=== PATIENT | female | born 1990 | race Caucasian/White ===

== ENCOUNTER 2018-02-22 18:12 | Inpatient (IN) ==
[2018-02-22 18:45] LABS: Bilirubin,Urine Small (Negative); Blood,Urine Negative (Negative); Clarity,Urine Cloudy (Clear); Color,Urine Yellow (Yellow); Glucose,Urine (UA) Normal (Normal); Ketones,Urine Trace mg/dL (Negative); Leukocyte Esterase,Urine Small (Negative); Nitrite,Urine Positive (Negative); Protein,Urine 30 mg/dL (Neg-Trace); Urobilinogen,Urine Normal (Normal)
[2018-02-22 18:47] LABS: Bacteria,Urine Many per hpf (None-Few); Hyaline Casts,Urine None Seen per lpf (None-Few); RBC,Urine 0-3 per hpf (0-3)
[2018-02-22 18:57] LABS: Amphetamine Screen,Urine Positive ng/mL (Cutoff=1000); Barbiturate Screen,Urine Negative ng/mL (Cutoff=200); Benzodiazepines Screen,Urine Negative ng/mL (Cutoff=200); Cannabinoid Screen,Urine Negative ng/mL (Cutoff = 50); Cocaine Screen,Urine Negative ng/mL (Cutoff= 300); Opiate Screen,Urine Negative ng/mL (Cutoff=300); Phencyclidine Screen,Urine Negative ng/mL (Cutoff=25)
[2018-02-22 18:59] LABS: Squamous Epithelial Cell,Urine Few per lpf (None-Few)
--- NOTE | 2018-02-22 19:15 | Emergency Department Note ---
Disposition Clinical Impression: Depression, Suicidal ideation Disposition: Still a Patient Condition: Fair Referrals: NONE,PCP [Primary Care Provider] - Forms: ED Satisfaction Letter Psych HPI - General Chief Complaint: ED Psychiatric Symptoms Stated Complaint: SI Time Seen by Provider: 02/22/18 18:18 Source: patient - History of Present Illness HPI Narrative: 27 YO F here for suicidal ideation with plan with a history of PTSD and depression. Patient states for the past few days she has been having suicidal idation with plan. She is a recreational drug user who uses IV meth, oral percocet and suboxone. She was planning on injecting and taking all the drugs available to OD. Decided to come in to get help today. She lives with her who is also an IV drug user. Patient has children but they live with [id number]. No weapons in her home. Patient was admitted 2 years ago at [facility] in [place] for suicidal ideation with plan for a week. She states she has been struggling with depression and suicidal ideation off and on since she was 15. Took IV meth and PO percocet yesterday. - Related Data Previous Rx's Medication Instructions Recorded Ketorolac [Toradol] 10 mg PO Q6HR #12 tablet 08/15/16 Cephalexin [Keflex] 500 mg PO QID #14 capsule 06/24/17 Allergies Allergy/AdvReac Type Severity Reaction Status Date / Time No Known Allergies Allergy Verified 02/22/18 18:40 All systems ED: reviewed and negative except as stated. 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 Vital Signs Temperature 98.2 F 02/22/18 18:17 Pulse Rate 115 02/22/18 18:17 Respiratory Rate 16 02/22/18 18:17 Blood Pressure 144/110 02/22/18 18:17 O2 Sat by Pulse Oximetry 99 02/22/18 18:17 Temperature 98.2 F 02/22/18 18:42 Pulse Rate 115 02/22/18 18:42 Respiratory Rate 16 02/22/18 18:42 Blood Pressure 144/110 02/22/18 18:42 O2 Sat by Pulse Oximetry 99 02/22/18 18:42 Oxygen Delivery Oxygen Delivery Room Air Psych - Lab Data Result diagrams: 02/22/18 19:36 02/22/18 19:36 Lab Results 02/22/18 02/22/18 02/22/18 Range/Units 18:34 18:34 19:36 WBC 7.1 (4.3-11.1) K/mcL RBC 4.94 (3.82-4.97) M/mcL Hgb 13.9 (11.5-15.4) g/dL Hct 40.7 (35.3-44.9) % MCV 82.4 L (83.0-100.0) fL MCH 28.1 (28.0-33.3) pg MCHC 34.2 (31.6-35.5) g/dL RDW 11.9 (11.5-14.5) % Plt Count 270 (140-400) K/mcL MPV 9.4 (9.4-12.4) fL Immature Gran % 0.3 (0-4) % Seg Neutrophils % 63.5 % Lymphocytes % 26.5 % Monocytes % 7.5 % Eosinophils % 1.6 % Basophils % 0.6 % Neutrophils # 4.5 (1.6-8.9) K/mcL Lymphocytes # 1.9 (0.6-4.6) K/mcL Monocytes # 0.5 (0.0-1.3) K/mcL Eosinophils # 0.1 (0.0-0.6) K/mcL Basophils # 0.0 (0.0-0.2) K/mcL Sodium (136-145) mEq/L Potassium (3.5-5.1) mEq/L Chloride (98-107) mEq/L Carbon Dioxide (23-29) mEq/L BUN (6-20) mg/dL Creatinine (0.60-1.20) mg/dL Est GFR ( Amer) (> 60) Est GFR (Non-Af Amer) (> 60) BUN/Creatinine Ratio (6-26) Glucose (70-105) mg/dL Calculated Osmolality (280-300) Calcium (8.6-10.3) mg/dL Total Bilirubin (0.3-1.0) mg/dL Direct Bilirubin (0.0-0.2) mg/dL Indirect Bilirubin (0.0-1.2) mg/dL AST (13-39) Units/L ALT (7-52) Units/L Alkaline Phosphatase (34-104) Units/L Serum Total Protein (6.4-8.9) g/dL Albumin (3.5-5.7) g/dL Globulin (2.4-3.5) g/dL Albumin/Globulin Ratio (1.1-2.2) TSH (0.340-5.600) mcIU/mL Urine Color Yellow (Yellow) Urine Clarity Cloudy A (Clear) Urine pH 6.0 (5.0-8.0) pH Units Ur Specific Stewart 1.030 H (1.010-1.025) Urine Protein 30 H (Neg-Trace) mg/dL Urine Glucose (UA) Normal (Normal) mg/dL Urine Ketones Trace H (Negative) mg/dL Urine Blood Negative (Negative) Urine Nitrite Positive A (Negative) Urine Bilirubin Small H (Negative) Urine Urobilinogen Normal (Normal) mg/dL Ur Leukocyte Esterase Small H (Negative) Urine Microscopic RBC 0-3 (0-3) per hpf Urine Microscopic WBC 5-15 H (0-3) per hpf Ur Squamous Epith Cells Few (None-Few) per lpf Urine Bacteria Many H (None-Few) per hpf Hyaline Casts None Seen (None-Few) per lpf Salicylates (15.0-30.0) mg/dL Urine Opiates Screen Negative (Lllcjv=500) ng/mL Acetaminophen (10-20) mcg/mL Ur Barbiturates Screen Negative (Fafzwd=189) ng/mL Ur Phencyclidine Scrn Negative (Cutoff=25) ng/mL Ur Amphetamines Screen Positive H (Vuceei=8879) ng/mL U Benzodiazepines Scrn Negative (Mlngwb=159) ng/mL Urine Cocaine Screen Negative (Cutoff= 300) ng/mL U Marijuana (THC) Screen Negative (Cutoff = 50) ng/mL Ur Drug Screen Interp See Below Ethyl Alcohol (Less than 10) mg/dL 02/22/18 Range/Units 19:36 WBC (4.3-11.1) K/mcL RBC (3.82-4.97) M/mcL Hgb (11.5-15.4) g/dL Hct (35.3-44.9) % MCV (83.0-100.0) fL MCH (28.0-33.3) pg MCHC (31.6-35.5) g/dL RDW (11.5-14.5) % Plt Count (140-400) K/mcL MPV (9.4-12.4) fL Immature Gran % (0-4) % Seg Neutrophils % % Lymphocytes % % Monocytes % % Eosinophils % % Basophils % % Neutrophils # (1.6-8.9) K/mcL Lymphocytes # (0.6-4.6) K/mcL Monocytes # (0.0-1.3) K/mcL Eosinophils # (0.0-0.6) K/mcL Basophils # (0.0-0.2) K/mcL Sodium 136 (136-145) mEq/L Potassium 3.2 L (3.5-5.1) mEq/L Chloride 102 (98-107) mEq/L Carbon Dioxide 23 (23-29) mEq/L BUN 20 (6-20) mg/dL Creatinine 1.00 (0.60-1.20) mg/dL Est GFR ( Amer) > 60 (> 60) Est GFR (Non-Af Amer) > 60 (> 60) BUN/Creatinine Ratio 20 (6-26) Glucose 146 H (70-105) mg/dL Calculated Osmolality 287 (280-300) Calcium 9.8 (8.6-10.3) mg/dL Total Bilirubin 0.7 (0.3-1.0) mg/dL Direct Bilirubin 0.2 (0.0-0.2) mg/dL Indirect Bilirubin 0.5 (0.0-1.2) mg/dL AST 30 (13-39) Units/L ALT 33 (7-52) Units/L Alkaline Phosphatase 54 (34-104) Units/L Serum Total Protein 7.3 (6.4-8.9) g/dL Albumin 4.5 (3.5-5.7) g/dL Globulin 2.8 (2.4-3.5) g/dL Albumin/Globulin Ratio 1.6 (1.1-2.2) TSH 0.515 (0.340-5.600) mcIU/mL Urine Color (Yellow) Urine Clarity (Clear) Urine pH (5.0-8.0) pH Units Ur Specific Stewart (1.010-1.025) Urine Protein (Neg-Trace) mg/dL Urine Glucose (UA) (Normal) mg/dL Urine Ketones (Negative) mg/dL Urine Blood (Negative) Urine Nitrite (Negative) Urine Bilirubin (Negative) Urine Urobilinogen (Normal) mg/dL Ur Leukocyte Esterase (Negative) Urine Microscopic RBC (0-3) per hpf Urine Microscopic WBC (0-3) per hpf Ur Squamous Epith Cells (None-Few) per lpf Urine Bacteria (None-Few) per hpf Hyaline Casts (None-Few) per lpf Salicylates < 2.5 L (15.0-30.0) mg/dL Urine Opiates Screen (Tmdycz=556) ng/mL Acetaminophen < 10 L (10-20) mcg/mL Ur Barbiturates Screen (Hxmhgu=353) ng/mL Ur Phencyclidine Scrn (Cutoff=25) ng/mL Ur Amphetamines Screen (Ggzfby=4419) ng/mL U Benzodiazepines Scrn (Yrpuqr=379) ng/mL Urine Cocaine Screen (Cutoff= 300) ng/mL U Marijuana (THC) Screen (Cutoff = 50) ng/mL Ur Drug Screen Interp Ethyl Alcohol 11 H (Less than 10) mg/dL Psychiatric Medical Clearance - Medical Clearance Checklist Medical History: No Social History Section defined Current Vitals: Last Vital Signs Temp 98.2 F 02/22/18 18:42 Pulse 115 02/22/18 18:42 Resp 16 02/22/18 18:42 BP 144/110 02/22/18 18:42 Pulse Ox 99 02/22/18 18:42 Psychiatric Lab Panel: Drug Levels and Toxicity 02/22/18 02/22/18 18:34 19:36 Urine Opiates Screen Negative Acetaminophen < 10 L Ur Barbiturates Screen Negative Ur Phencyclidine Scrn Negative Ur Amphetamines Screen Positive H U Benzodiazepines Scrn Negative Urine Cocaine Screen Negative U Marijuana (THC) Screen Negative Ethyl Alcohol 11 H Abnormal Labs: Abnormal lab results MCV 82.4 fL (83.0-100.0) L 02/22/18 19:36 Potassium 3.2 mEq/L (3.5-5.1) L 02/22/18 19:36 Glucose 146 mg/dL (70-105) H 02/22/18 19:36 Urine Clarity Cloudy (Clear) A 02/22/18 18:34 Ur Specific Stewart 1.030 (1.010-1.025) H 02/22/18 18:34 Urine Protein 30 mg/dL (Neg-Trace) H 02/22/18 18:34 Urine Ketones Trace mg/dL (Negative) H 02/22/18 18:34 Urine Nitrite Positive (Negative) A 02/22/18 18:34 Urine Bilirubin Small (Negative) H 02/22/18 18:34 Ur Leukocyte Esterase Small (Negative) H 02/22/18 18:34 Urine Microscopic WBC 5-15 per hpf (0-3) H 02/22/18 18:34 Urine Bacteria Many per hpf (None-Few) H 02/22/18 18:34 Salicylates < 2.5 mg/dL (15.0-30.0) L 02/22/18 19:36 Acetaminophen < 10 mcg/mL (10-20) L 02/22/18 19:36 Ur Amphetamines Screen Positive ng/mL (Spxlyv=9056) H 02/22/18 18:34 Ethyl Alcohol 11 mg/dL (Less than 10) H 02/22/18 19:36 Statement of Medical Clearance: I have evaluated the patient, reviewed diagnostic information, and certify that the patient's medical condition is sufficiently stable that transfer to the psychiatric unit does not pose a significant risk of deterioration. Attestation Statement - Attestation Attestation: I examined this patient and my medical decision-making was reviewed with the Resident Physician. I agree with the documented findings, disposition and treatment plan as described except to the extent set forth below. Suicidal ideations related underlying drug abuse. Will obtain basic laboratory analyses and then proceed with psychiatric evaluation for possible placement.
[2018-02-22 20:00] LABS: Basophils % 0.6 %; Eosinophils # 0.1 K/mcL (0.0-0.6); Eosinophils % 1.6 %; Hematocrit 40.7 % (35.3-44.9); Hemoglobin 13.9 g/dL (11.5-15.4); Immature Granulocytes % 0.3 % (0-4); Lymphocytes # 1.9 K/mcL (0.6-4.6); Lymphocytes % 26.5 %; Mean Corpuscular HGB Conc 34.2 g/dL (31.6-35.5); Mean Corpuscular Hemoglobin 28.1 pg (28.0-33.3); Mean Corpuscular Volume 82.4 fL (83.0-100.0); Mean Platelet Volume 9.4 fL (9.4-12.4); Monocytes # 0.5 K/mcL (0.0-1.3); Monocytes % 7.5 %; Neutrophils # 4.5 K/mcL (1.6-8.9); Platelet Count 270 K/mcL (140-400); Red Blood Count 4.94 M/mcL (3.82-4.97); Red Cell Distribution Width 11.9 % (11.5-14.5); Segmented Neutrophils % 63.5 %
[2018-02-22] MEDS ORDERED: clonazePAM 0.5 MG TABLET PO ONE (20:03)
[2018-02-22 20:32] LABS: Acetaminophen < 10 mcg/mL (10-20); Alanine Aminotransferase 33 Units/L (7-52); Albumin 4.5 g/dL (3.5-5.7); Albumin/Globulin Ratio 1.6 (1.1-2.2); Alkaline Phosphatase 54 Units/L (34-104); Aspartate Amino Transferase 30 Units/L (13-39); BUN/Creatinine Ratio 20 (6-26); Bilirubin,Direct 0.2 mg/dL (0.0-0.2); Bilirubin,Indirect 0.5 mg/dL (0.0-1.2); Bilirubin,Total 0.7 mg/dL (0.3-1.0); Blood Urea Nitrogen 20 mg/dL (6-20); Calcium 9.8 mg/dL (8.6-10.3); Carbon Dioxide 23 mEq/L (23-29); Chloride 102 mEq/L (98-107); Ethanol 11 mg/dL (Less than 10); Globulin 2.8 g/dL (2.4-3.5); Glucose 146 mg/dL (70-105); Osmolality,Calculated 287 (280-300); Potassium 3.2 mEq/L (3.5-5.1); Salicylate < 2.5 mg/dL (15.0-30.0); Sodium 136 mEq/L (136-145); Total Protein 7.3 g/dL (6.4-8.9); eGFR For Non-African Americans > 60 (> 60)
[2018-02-22 20:40] LABS: Thyroid Stimulating Hormone 0.515 mcIU/mL (0.340-5.600)
[2018-02-22] MEDS ORDERED: cephALEXin 250 MG CAPSULE PO ONE (22:45)
[2018-02-22] MEDS ORDERED: *HR* LORazepam 1 MG TABLET PO PRN (23:10)
[2018-02-22] MEDS ORDERED: MOM Conc 10 ML UD.LIQ PO PRN (23:10)
[2018-02-22] MEDS ORDERED: Acetaminophen 325 MG TABLET PO PRN (23:10)
[2018-02-22] MEDS ORDERED: Haloperidol Lactate 5 MG/ML VIAL IM PRN (23:10)
[2018-02-22] MEDS ORDERED: Mag Hydrox/Al Hydrox/Simeth 30 ML UDC PO PRN (23:10)
[2018-02-22] MEDS ORDERED: *HR* LORazepam 2 MG/ML VIAL IM PRN (23:10)
[2018-02-23] MEDS: traZODone 50 MG TABLET PO PRN ×2 (00:11→20:33)
[2018-02-23] MEDS: hydrOXYzine pamoate 25 MG CAPSULE PO PRN ×3 (00:11→20:33)
[2018-02-23] MEDS: Nicotine 21 MG PATCH.TD24 TD SCH (08:49)
--- NOTE | 2018-02-23 10:01 | Psychiatry History & Physical ---
Date of Encounter: 02/23/18 Time of Encounter: 09:56 History of Present Illness Patient Stated Chief Complaint: Suicidal ideation Medicare Admission Attestation: For traditional Medicare patients the provided hospital inpatient services are reasonable and necessary and in the case of services not specified as inpatient -only under 42 CFR 419.22 (n), that they are appropriately provided as inpatient services in accordance 42 CFR 412.3. For Critical Access Hospital the patient may reasonably be expected to be discharged or transferred to a hospital within 96 hours after admission to the Critical Access Hospital. Admitted From: Emergency Dept History of Present Illness: Ms. Iyer is a 27 year old female admitted from the emergency department for suicidal ideation. Patient lost custody of her children last week due to substance abuse also she was having marital difficulties and fighting with her , they both abuse drugs like methamphetamine and opiates. Patient wanted to get help for her drug abuse. She never had any treatment for substance abuse or psychiatric treatment. Her 3 children are living with mother -in-law. Patient complained of an anxiety irritability, depression, hopelessness and suicidal ideation. UDS was positive for opiates and amphetamine. Patient admits to using IVDA. She is hep C positive. She did not follow-up on hep C because she has no primary care physician. She has high school education and no work history. Drugs she used include methamphetamine, Suboxone and other opiates. Past Med Surg Social Fam HX - Past Medical History Medical history: hepatitis - Past Psychiatric History Psychiatric history: Reports: anxiety, depression, PTSD, previous psychiatric hospitalization Past psychiatric history details: [facility] December 2016. Family psychiatric history: Unknown - Past Surgical History Surgical History: appendectomy - Social History Smoking Status: Current every day smoker Smokeless Tobacco Status: No Alcohol use: none Drug use: opiates, methamphetamine, IV Drug Use, prescription drug abuse Medications & Allergies Ketorolac [Toradol] 10 mg PO Q6HR #12 tablet 08/15/16 [Rx] Cephalexin [Keflex] 500 mg PO QID #14 capsule 06/24/17 [Rx] Cephalexin [Keflex] 500 mg PO BID 7 Days #14 capsule 02/22/18 [Rx] 3 Allergy/AdvReac Type Severity Reaction Status Date / Time No Known Allergies Allergy Verified 02/22/18 18:40 Review of Systems Psychiatric: Reports: anxiety, abnormal sleep pattern, suicidal ideation, hopelessness, irritability, mood swings Exam - HEENT Head exam IM: Present: atraumatic Eye exam IM: Present: EOMI, normal appearance, PERRL ENT exam IM: Present: normal exam - Neurological Neurological exam: Present: CN II-XII intact - Respiratory Respiratory exam IM: Present: CTAB - GI/Abdominal GI/Abdominal exam IM: Present: normal bowel sounds, soft. Absent: tenderness - Extremities Extremities exam IM: Present: full ROM - Skin Skin exam IM: Present: dry, warm - Constitutional Vitals: Temp Pulse Resp BP Pulse Ox 97.8 F 88 14 124/80 99 02/23/18 08:59 02/23/18 08:59 02/23/18 08:59 02/23/18 08:59 02/22/18 18:42 General appearance: unkempt, disheveled, malnourished, thin - Musculoskeletal Gait: normal Station: relaxed Strength & Tone: normal for patient - Psychiatric Patient Orientation: Yes Person, Yes Time, Yes Place Level of alertness: Alert Behavior: cooperative, anxious, restless, guarded Psychomotor activity: Normal Eye Contact: Fleeting Contact Mood Description: Anxious, Labile, Irritable Affect description: congruent with mood, labile, dysphoric Speech Volume: Normal, Whispering Speech pattern: normal rate, normal rhythm, fluent, spontaneous, limited Language & Vocabulary: consistent with education Thought Process: Linear, Goal Oriented Thought Content: Yes Suicidal ideation, No Homicidal ideation, No Overt delusions Perceptual Disturbances: No Auditory hallucinations, No Visual hallucinations Attention Span Ability: Capable of Focused Attention Memory Description: Grossly Intact Patient Reliability: Questionable Historian Fund of knowledge: Yes abstraction ability, Yes average, Yes aware of current events Intelligence Estimate: Average Judgment: Limited Insight: Partial Results - Labs Labs: Laboratory Last Values WBC 7.1 K/mcL (4.3-11.1) 02/22/18 19:36 RBC 4.94 M/mcL (3.82-4.97) 02/22/18 19:36 Hgb 13.9 g/dL (11.5-15.4) 02/22/18 19:36 Hct 40.7 % (35.3-44.9) 02/22/18 19:36 MCV 82.4 fL (83.0-100.0) L 02/22/18 19:36 MCH 28.1 pg (28.0-33.3) 02/22/18 19:36 MCHC 34.2 g/dL (31.6-35.5) 02/22/18 19:36 RDW 11.9 % (11.5-14.5) 02/22/18 19:36 Plt Count 270 K/mcL (140-400) 02/22/18 19:36 MPV 9.4 fL (9.4-12.4) 02/22/18 19:36 Immature Gran % 0.3 % (0-4) 02/22/18 19:36 Seg Neutrophils % 63.5 % 02/22/18 19:36 Lymphocytes % 26.5 % 02/22/18 19:36 Monocytes % 7.5 % 02/22/18 19:36 Eosinophils % 1.6 % 02/22/18 19:36 Basophils % 0.6 % 02/22/18 19:36 Neutrophils # 4.5 K/mcL (1.6-8.9) 02/22/18 19:36 Lymphocytes # 1.9 K/mcL (0.6-4.6) 02/22/18 19:36 Monocytes # 0.5 K/mcL (0.0-1.3) 02/22/18 19:36 Eosinophils # 0.1 K/mcL (0.0-0.6) 02/22/18 19:36 Basophils # 0.0 K/mcL (0.0-0.2) 02/22/18 19:36 Sodium 136 mEq/L (136-145) 02/22/18 19:36 Potassium 3.2 mEq/L (3.5-5.1) L 02/22/18 19:36 Chloride 102 mEq/L (98-107) 02/22/18 19:36 Carbon Dioxide 23 mEq/L (23-29) 02/22/18 19:36 BUN 20 mg/dL (6-20) 02/22/18 19:36 Creatinine 1.00 mg/dL (0.60-1.20) 02/22/18 19:36 Est GFR ( Amer) > 60 (> 60) 02/22/18 19:36 Est GFR (Non-Af Amer) > 60 (> 60) 02/22/18 19:36 BUN/Creatinine Ratio 20 (6-26) 02/22/18 19:36 Glucose 146 mg/dL (70-105) H 02/22/18 19:36 Calculated Osmolality 287 (280-300) 02/22/18 19:36 Calcium 9.8 mg/dL (8.6-10.3) 02/22/18 19:36 Total Bilirubin 0.7 mg/dL (0.3-1.0) 02/22/18 19:36 Direct Bilirubin 0.2 mg/dL (0.0-0.2) 02/22/18 19:36 Indirect Bilirubin 0.5 mg/dL (0.0-1.2) 02/22/18 19:36 AST 30 Units/L (13-39) 02/22/18 19:36 ALT 33 Units/L (7-52) 02/22/18 19:36 Alkaline Phosphatase 54 Units/L (34-104) 02/22/18 19:36 Serum Total Protein 7.3 g/dL (6.4-8.9) 02/22/18 19:36 Albumin 4.5 g/dL (3.5-5.7) 02/22/18 19:36 Globulin 2.8 g/dL (2.4-3.5) 02/22/18 19:36 Albumin/Globulin Ratio 1.6 (1.1-2.2) 02/22/18 19:36 TSH 0.515 mcIU/mL (0.340-5.600) 02/22/18 19:36 Urine Color Yellow (Yellow) 02/22/18 18:34 Urine Clarity Cloudy (Clear) A 02/22/18 18:34 Urine pH 6.0 pH Units (5.0-8.0) 02/22/18 18:34 Ur Specific Dexter 1.030 (1.010-1.025) H 02/22/18 18:34 Urine Protein 30 mg/dL (Neg-Trace) H 02/22/18 18:34 Urine Glucose (UA) Normal mg/dL (Normal) 02/22/18 18:34 Urine Ketones Trace mg/dL (Negative) H 02/22/18 18:34 Urine Blood Negative (Negative) 02/22/18 18:34 Urine Nitrite Positive (Negative) A 02/22/18 18:34 Urine Bilirubin Small (Negative) H 02/22/18 18:34 Urine Urobilinogen Normal mg/dL (Normal) 02/22/18 18:34 Ur Leukocyte Esterase Small (Negative) H 02/22/18 18:34 Urine Microscopic RBC 0-3 per hpf (0-3) 02/22/18 18:34 Urine Microscopic WBC 5-15 per hpf (0-3) H 02/22/18 18:34 Ur Squamous Epith Cells Few per lpf (None-Few) 02/22/18 18:34 Urine Bacteria Many per hpf (None-Few) H 02/22/18 18:34 Hyaline Casts None Seen per lpf (None-Few) 02/22/18 18:34 Salicylates < 2.5 mg/dL (15.0-30.0) L 02/22/18 19:36 Urine Opiates Screen Negative ng/mL (Myxozq=092) 02/22/18 18:34 Acetaminophen < 10 mcg/mL (10-20) L 02/22/18 19:36 Ur Barbiturates Screen Negative ng/mL (Ayczao=648) 02/22/18 18:34 Ur Phencyclidine Scrn Negative ng/mL (Cutoff=25) 02/22/18 18:34 Ur Amphetamines Screen Positive ng/mL (Tkfqgp=2060) H 02/22/18 18:34 U Benzodiazepines Scrn Negative ng/mL (Ixivih=184) 02/22/18 18:34 Urine Cocaine Screen Negative ng/mL (Cutoff= 300) 02/22/18 18:34 U Marijuana (THC) Screen Negative ng/mL (Cutoff = 50) 02/22/18 18:34 Ur Drug Screen Interp See Below 02/22/18 18:34 Ethyl Alcohol 11 mg/dL (Less than 10) H 02/22/18 19:36 Assessment and Plan (1) Suicidal ideation Current visit: Yes Status: Acute Plan: Admit inpatient for safety and stabilization, Close observation, Suicide Precautions per unit protocol, Encourage participation in unit milieu, Group Therapy, Monitor sleep, Monitor appetite Additional Plan: Mirtazapine 15 mg daily at bedtime Risks, benefits, side effects, alternatives discussed w/pt: Yes Patient agreeable to treatment: Yes Estimated Length of Stay (Days): 5 (2) Polysubstance dependence including opioid drug with daily use Current visit: Yes Status: Acute Plan: Admit inpatient for safety and stabilization, Close observation, Suicide Precautions per unit protocol, Encourage participation in unit milieu, Group Therapy, Monitor sleep, Monitor appetite
[2018-02-23] MEDS: cephALEXin 500 MG CAPSULE PO SCH ×2 (12:03→20:40)
[2018-02-23] MEDS: Mirtazapine 15 MG TABLET PO SCH (20:40)
[2018-02-24] MEDS: cephALEXin 500 MG CAPSULE PO SCH ×2 (09:00→20:49)
[2018-02-24] MEDS: Nicotine 21 MG PATCH.TD24 TD SCH (10:08)
--- NOTE | 2018-02-24 13:56 | Psychiatry Progress Note ---
Date of Encounter: 02/24/18 Time of Encounter: 12:45 Subjective Interval history: Patient seen for follow-up. Case discussed with treatment team. Staff report patient is anxious about her discharge plans, she reported improved sleep, she tolerated mirtazapine and reports improved appetite. She denies suicidal or homicidal ideation. She is focused on getting into rehabilitation and will discuss with public health social worker. She is interacting with staff and peers appropriately and denied any physical symptoms. She is emotional and tearful. Review of Systems Psychiatric: Reports: anxiety, abnormal sleep pattern, suicidal ideation, hopelessness, irritability, mood swings Results - Vital Signs Vital Signs: Temp Pulse Resp BP Pulse Ox 98.9 F 107 20 125/88 99 02/24/18 09:00 02/24/18 09:00 02/24/18 09:00 02/24/18 09:00 02/22/18 18:42 Assessment and Plan (1) Suicidal ideation Current visit: Yes Status: Acute Plan: Continue hospitalization, Close observation, Suicide Precautions per unit protocol, Encourage participation in unit milieu, Group Therapy, Monitor sleep, Monitor appetite Risks, benefits, side effects, alternatives discussed w/pt: Yes Patient agreeable to treatment: Yes (2) Polysubstance dependence including opioid drug with daily use Current visit: Yes Status: Acute Plan: Continue hospitalization, Close observation, Suicide Precautions per unit protocol, Encourage participation in unit milieu, Group Therapy, Monitor sleep, Monitor appetite Consult Discharge Plan - Plan Referrals: NONE,PCP [Primary Care Provider] - Psychiatry Exam - Constitutional Vitals: Temp Pulse Resp BP Pulse Ox 98.9 F 107 20 125/88 99 02/24/18 09:00 02/24/18 09:00 02/24/18 09:00 02/24/18 09:00 02/22/18 18:42 General appearance: age & developmentally appropriate, well-groomed, well- nourished, thin - Musculoskeletal Gait: normal Station: relaxed Strength & Tone: normal for patient - Psychiatric Patient Orientation: Yes Person, Yes Time, Yes Place Level of alertness: Alert Behavior: calm, cooperative Psychomotor activity: Normal Eye Contact: Maintains Eye Contact Mood Description: Euthymic/stable, Depressed, Anxious Affect description: congruent with mood, constricted, anxious Speech Volume: Normal Speech pattern: normal rate, normal rhythm, normal tone, fluent, spontaneous Language & Vocabulary: consistent with education Thought Process: Linear, Goal Oriented Thought Content: No Suicidal ideation, No Homicidal ideation, No Overt delusions Perceptual Disturbances: No Auditory hallucinations, No Visual hallucinations Attention Span Ability: Capable of Focused Attention Memory Description: Grossly Intact Patient Reliability: Reliable Historian Fund of knowledge: Yes abstraction ability, Yes aware of current events Intelligence Estimate: Average Judgment: Limited Insight: Partial
[2018-02-24] MEDS: traZODone 50 MG TABLET PO PRN (20:50)
[2018-02-24] MEDS: Mirtazapine 15 MG TABLET PO SCH (20:50)
[2018-02-24] MEDS: hydrOXYzine pamoate 25 MG CAPSULE PO PRN (20:51)
[2018-02-25] MEDS: cephALEXin 500 MG CAPSULE PO SCH ×2 (08:48→21:32)
[2018-02-25] MEDS: Nicotine 21 MG PATCH.TD24 TD SCH (08:48)
--- NOTE | 2018-02-25 15:45 | Psychiatry Progress Note ---
Date of Encounter: 02/25/18 Time of Encounter: 13:00 Subjective Interval history: Patient seen for follow-up. Case discussed with treatment team. Staff report she is medication compliant, cooperative and interactive with peers and staff appropriately. She is less depressed less anxious, she is showing improvements in mood and sleep. She was advised by social work to contact rehabilitation facilities and she is working on this placement. Denies suicidal ideation and future oriented and looking forward to starting rehabilitation soon. Review of Systems Psychiatric: Reports: anxiety, abnormal sleep pattern, suicidal ideation, hopelessness, irritability, mood swings Results - Vital Signs Vital Signs: Temp Pulse Resp BP Pulse Ox 98.5 F 109 18 131/85 99 02/25/18 09:00 02/25/18 09:00 02/25/18 09:00 02/25/18 09:00 02/22/18 18:42 Assessment and Plan (1) Suicidal ideation Current visit: Yes Status: Acute Plan: Continue hospitalization, Close observation, Suicide Precautions per unit protocol, Encourage participation in unit milieu, Group Therapy, Monitor sleep, Monitor appetite Risks, benefits, side effects, alternatives discussed w/pt: Yes Patient agreeable to treatment: Yes (2) Polysubstance dependence including opioid drug with daily use Current visit: Yes Status: Acute Plan: Continue hospitalization, Close observation, Suicide Precautions per unit protocol, Encourage participation in unit milieu, Group Therapy, Monitor sleep, Monitor appetite Consult Discharge Plan - Plan Referrals: NONE,PCP [Primary Care Provider] - Psychiatry Exam - Constitutional Vitals: Temp Pulse Resp BP Pulse Ox 98.5 F 109 18 131/85 99 02/25/18 09:00 02/25/18 09:00 02/25/18 09:00 02/25/18 09:00 02/22/18 18:42 General appearance: age & developmentally appropriate, well-groomed, well- nourished, thin - Musculoskeletal Gait: normal Station: relaxed Strength & Tone: normal for patient - Psychiatric Patient Orientation: Yes Person, Yes Time, Yes Place Level of alertness: Alert Behavior: calm, cooperative Psychomotor activity: Normal Eye Contact: Maintains Eye Contact Mood Description: Euthymic/stable, Anxious Affect description: congruent with mood, full range Speech Volume: Normal Speech pattern: normal rate, normal rhythm, normal tone, fluent, spontaneous Language & Vocabulary: consistent with education Thought Process: Linear, Goal Oriented Thought Content: No Suicidal ideation, No Homicidal ideation, No Overt delusions Perceptual Disturbances: No Auditory hallucinations, No Visual hallucinations Attention Span Ability: Capable of Focused Attention Memory Description: Grossly Intact Patient Reliability: Reliable Historian Fund of knowledge: Yes abstraction ability, Yes aware of current events Intelligence Estimate: Average Judgment: Limited Insight: Partial
[2018-02-25] MEDS: Mirtazapine 15 MG TABLET PO SCH (21:31)
[2018-02-25] MEDS: hydrOXYzine pamoate 25 MG CAPSULE PO PRN (21:32)
[2018-02-25] MEDS: traZODone 50 MG TABLET PO PRN (21:32)
[2018-02-26] MEDS: Nicotine 21 MG PATCH.TD24 TD SCH (08:25)
[2018-02-26] MEDS: cephALEXin 500 MG CAPSULE PO SCH ×2 (08:25→21:23)
--- NOTE | 2018-02-26 14:22 | Psychiatry Progress Note ---
Date of Encounter: 02/26/18 Time of Encounter: 14:19 Subjective Interval history: Patient seen for follow-up. Case discussed with treatment team. Patient is compliant with medication denies any problem with sleep or appetite. She keeps adequate ADLs. She was accepted in rehabilitation but awaiting available bed. delivery sales worker is working on discharge plans and transportation. Patient is well motivated to start rehabilitation For 90 days. Denies any suicidal ideation. Slightly labile. Review of Systems Psychiatric: Reports: anxiety, abnormal sleep pattern, suicidal ideation, hopelessness, irritability, mood swings Results - Vital Signs Vital Signs: Temp Pulse Resp BP Pulse Ox 99 F 105 16 118/84 99 02/26/18 09:00 02/26/18 09:00 02/26/18 09:00 02/26/18 09:00 02/22/18 18:42 Assessment and Plan (1) Suicidal ideation Current visit: Yes Status: Acute Plan: Continue hospitalization, Close observation, Suicide Precautions per unit protocol, Encourage participation in unit milieu, Group Therapy, Monitor sleep, Monitor appetite Risks, benefits, side effects, alternatives discussed w/pt: Yes Patient agreeable to treatment: Yes (2) Polysubstance dependence including opioid drug with daily use Current visit: Yes Status: Acute Plan: Continue hospitalization, Close observation, Suicide Precautions per unit protocol, Encourage participation in unit milieu, Group Therapy, Monitor sleep, Monitor appetite Consult Discharge Plan - Plan Referrals: [facility] [Outside] (You are going into dual diagnosis, residentail treatment on discharge. [facility] staff will schedule your outpatient psychiatric medication management appointment after you come into the program.) Psychiatry Exam - Constitutional Vitals: Temp Pulse Resp BP Pulse Ox 99 F 105 16 118/84 99 02/26/18 09:00 02/26/18 09:00 02/26/18 09:00 02/26/18 09:00 02/22/18 18:42 General appearance: thin - Musculoskeletal Gait: normal Station: relaxed Strength & Tone: normal for patient - Psychiatric Patient Orientation: Yes Person, Yes Time, Yes Place Level of alertness: Alert Behavior: calm, cooperative Psychomotor activity: Normal Eye Contact: Maintains Eye Contact Mood Description: Euthymic/stable, Anxious Affect description: congruent with mood, full range, labile Speech Volume: Normal Speech pattern: normal rate, normal rhythm, normal tone, fluent, spontaneous Language & Vocabulary: consistent with education Thought Process: Linear, Goal Oriented Thought Content: No Suicidal ideation, No Homicidal ideation, No Overt delusions Perceptual Disturbances: No Auditory hallucinations, No Visual hallucinations Attention Span Ability: Capable of Focused Attention Memory Description: Grossly Intact Patient Reliability: Reliable Historian Fund of knowledge: Yes abstraction ability, Yes aware of current events Intelligence Estimate: Average Judgment: Limited Insight: Partial
[2018-02-26] MEDS: hydrOXYzine pamoate 25 MG CAPSULE PO PRN (21:24)
[2018-02-26] MEDS: traZODone 50 MG TABLET PO PRN (21:24)
[2018-02-26] MEDS: Mirtazapine 15 MG TABLET PO SCH (21:24)
[2018-02-27] MEDS: cephALEXin 500 MG CAPSULE PO SCH ×2 (08:47→20:44)
[2018-02-27] MEDS: Nicotine 21 MG PATCH.TD24 TD SCH (08:47)
--- NOTE | 2018-02-27 16:02 | Psychiatry Progress Note ---
Date of Encounter: 02/27/18 Time of Encounter: 16:00 Subjective Interval history: Patient seen for follow-up. Case discussed with treatment team. Patient reports feeling much better and excited about starting her rehabilitation and motivated to complete the program. She denies any problem with sleep or appetite, she denied any depressive feelings and denies suicidal ideation. Review of Systems Psychiatric: Reports: anxiety, abnormal sleep pattern, suicidal ideation, hopelessness, irritability, mood swings Results - Vital Signs Vital Signs: Temp Pulse Resp BP Pulse Ox 98.7 F 107 16 116/81 99 02/27/18 09:00 02/27/18 09:00 02/27/18 09:00 02/27/18 09:00 02/22/18 18:42 Assessment and Plan (1) Suicidal ideation Current visit: Yes Status: Acute Plan: Continue hospitalization, Close observation, Suicide Precautions per unit protocol, Encourage participation in unit milieu, Group Therapy, Monitor sleep, Monitor appetite Risks, benefits, side effects, alternatives discussed w/pt: Yes Patient agreeable to treatment: Yes (2) Polysubstance dependence including opioid drug with daily use Current visit: Yes Status: Acute Plan: Continue hospitalization, Close observation, Suicide Precautions per unit protocol, Encourage participation in unit milieu, Group Therapy, Monitor sleep, Monitor appetite Consult Discharge Plan - Plan Referrals: [facility] [Outside] (You are going into dual diagnosis, residentail treatment on discharge. [facility] staff will schedule your outpatient psychiatric medication management appointment after you come into the program.) Psychiatry Exam - Constitutional Vitals: Temp Pulse Resp BP Pulse Ox 98.7 F 107 16 116/81 99 02/27/18 09:00 02/27/18 09:00 02/27/18 09:00 02/27/18 09:00 02/22/18 18:42 General appearance: age & developmentally appropriate, well-groomed, well- nourished, thin - Musculoskeletal Gait: normal Station: relaxed Strength & Tone: normal for patient - Psychiatric Patient Orientation: Yes Person, Yes Time, Yes Place Level of alertness: Alert Behavior: calm, cooperative Psychomotor activity: Normal Eye Contact: Maintains Eye Contact Mood Description: Euthymic/stable Affect description: congruent with mood, full range Speech Volume: Normal Speech pattern: normal rate, normal rhythm, normal tone, fluent, spontaneous Language & Vocabulary: consistent with education Thought Process: Linear, Goal Oriented Thought Content: No Suicidal ideation, No Homicidal ideation, No Overt delusions Perceptual Disturbances: No Auditory hallucinations, No Visual hallucinations Attention Span Ability: Capable of Focused Attention Memory Description: Grossly Intact Patient Reliability: Reliable Historian Fund of knowledge: Yes abstraction ability, Yes aware of current events Intelligence Estimate: Average Judgment: Limited Insight: Partial
[2018-02-27] MEDS: hydrOXYzine pamoate 25 MG CAPSULE PO PRN (20:43)
[2018-02-27] MEDS: Mirtazapine 15 MG TABLET PO SCH (20:44)
[2018-02-27] MEDS: traZODone 50 MG TABLET PO PRN (20:45)
[2018-02-28 08:36] VITALS: BP 124/93
[2018-02-28] MEDS: cephALEXin 500 MG CAPSULE PO SCH (09:18)
--- NOTE | 2018-02-28 09:39 | Discharge Summary ---
Date of Encounter: 02/28/18 Time of Encounter: 09:33 Diagnosis - Discharge Diagnosis (1) Suicidal ideation Status: Acute (2) Polysubstance dependence including opioid drug with daily use Status: Acute Medications - Discharge Medications Prescriptions: Mirtazapine [Remeron] 15 mg PO HS #30 tablet Cephalexin [Keflex] 500 mg PO BID 7 Days #14 capsule 02/22/18 [Rx] Mirtazapine [Remeron] 15 mg PO HS #30 tablet 02/28/18 [Rx] 3 Allergy/AdvReac Type Severity Reaction Status Date / Time No Known Allergies Allergy Verified 02/26/18 11:08 Provider Date of admission: 02/23/18 09:55 Primary care physician: PCP NONE Discharging clinician: Reji Guerrero Psychiatry Exam - Constitutional Vitals: Temp Pulse Resp BP Pulse Ox 98.2 F 98 16 124/93 99 02/28/18 08:35 02/28/18 08:35 02/28/18 08:35 02/28/18 08:35 02/22/18 18:42 General appearance: age & developmentally appropriate, well-groomed, well- nourished, thin - Musculoskeletal Gait: normal Station: relaxed Strength & Tone: normal for patient - Psychiatric Patient Orientation: Yes Person, Yes Time, Yes Place Level of alertness: Alert Behavior: calm, cooperative Psychomotor activity: Normal Eye Contact: Maintains Eye Contact Mood Description: Euthymic/stable Affect description: congruent with mood, full range Speech Volume: Normal Speech pattern: normal rate, normal rhythm, normal tone, fluent, spontaneous Language & Vocabulary: consistent with education Thought Process: Linear, Goal Oriented Thought Content: No Suicidal ideation, No Homicidal ideation, No Overt delusions Perceptual Disturbances: No Auditory hallucinations, No Visual hallucinations Attention Span Ability: Capable of Focused Attention Memory Description: Grossly Intact Patient Reliability: Reliable Historian Fund of knowledge: Yes abstraction ability, Yes aware of current events Intelligence Estimate: Average Judgment: Limited Insight: Partial Hospital Course Hospital course: Ms. Iyer is a 27 year old female admitted for suicidal ideation and substance abuse. For details of the admission please see H&P On the units patient was started on mirtazapine 15 mg, she was encouraged to participate in group activities and she was educated about substance abuse and medication compliance. transportation maintenance worker to help the patient contact to rehabilitation facilities to sign up for rehabilitation, patient was motivated to get started on the rehabilitation and facility was located and they had an adequate ability to admit the patient. Patient participated in activities she was medication compliant and cooperative, interacted with peers and staff appropriately. She denies suicidal ideation she showed improvements in her sleep and appetite, energy level and motivation. On discharge patient is medically stable future oriented and nonsuicidal. Discharged in stable condition. - Time Spent with Patient Total time spent providing and/or coordinating discharge services: Less than 30 minutes Assessment and Plan - Patient/Caregiver Discharge Instructions Activity: resume usual activities as tolerated Diet: regular diet - Follow up Plan Follow up with: [facility] [Outside] (You are going into dual diagnosis, residentail treatment on discharge. [facility] staff will schedule your outpatient psychiatric medication management appointment after you come into the program.) Functional capacity at discharge: independent ambulation Overall status at discharge: Stable Disposition: Home, Self-Care Quality - Multiple Antipsychotics Patient discharged on 2 or more antipsychotic medications: No Procedures - Procedures Procedures: Medication Management, Crisis Stabilization, Supportive Therapy, Group Therapy, Psychoeducational Therapy
[2018-02-28] MEDS: Nicotine 21 MG PATCH.TD24 TD SCH (09:45)
== END 2018-02-28 11:33 | disposition home or self-care (01) | DRG 773 ==
LOC: EMEROOARM 18:12 → 1ANU 18:12
PROVIDERS: ADMIT Psychiatry & Neurology Psychiatry; ATTEND Psychiatry & Neurology Psychiatry